=== PATIENT | male | born 1990 | race Caucasian/White ===

== ENCOUNTER 2017-07-08 08:10 | Emergency (ER) | payer MEDICAID ==
[2017-07-08] MEDS: Acetaminophen 500 MG Tab PO ONE (10:01)
[2017-07-08 11:20] VITALS: BP 109/77
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
== END 2017-07-08 11:15 | disposition home or self-care (01) ==
LOC: FB.ED 08:10
DX: S02.2XXA Fracture of nasal bones, initial encounter for closed fracture (principal); S06.0X9A Concussion with loss of consciousness of unspecified duration, initial encounter; F17.210 Nicotine dependence, cigarettes, uncomplicated; Y04.0XXA Assault by unarmed brawl or fight, initial encounter; Z79.899 Other long term (current) drug therapy; Z91.09 Other allergy status, other than to drugs and biological substances
CPT/HCPCS: 70486; 80305; 99283; A9270